=== PATIENT | male | born 1975 | race Caucasian/White ===

== ENCOUNTER → 2021-05-22 | Emergency (ER) | payer OTHER, MEDICARE ==
[~2021-05-22] VITALS: Ht 180.3 cm; Wt 92.5 kg
--- OUTSIDE RECORDS SUMMARY | 2021-05-22 19:24 | XMS ---
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 E.D. VISIT COUNT (12 MO.) 1 [facility] [place] [facility] [place] TOTAL 2 NOTE: Visits indicate total known visits. ED/UCC VISIT TRACKING (12 MO.) 05/22/2021 19:[address] [facility] [place] [place] TYPE: Emergency COMPLAINT: - TRAUMA 01/28/2021 21:27 [facility] [place] TYPE: Emergency DIAGNOSES: 1. Calculus in urethra 2. Type 2 diabetes mellitus without complications 3. adjunct faculty for medical terminology (current) use of oral hypoglycemic drugs 4. Other dedicated intermodal truck driver (current) drug therapy INPATIENT VISIT TRACKING (12 MO.) No inpatient visits to display in this time frame [email or web address]
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
== END | disposition home or self-care (01) ==
LOC: ED 15:51 → EDBD 19:15
DX: R07.81 Pleurodynia (principal); V43.52XA Car driver injured in collision with other type car in traffic accident, initial encounter
CPT/HCPCS: 36415; 71045; 80053; 82150; 82553; 83690; 85025; 86850; 86900; 86901; 99284-25; A9270; G0480